=== PATIENT | male | born 1950 | race Caucasian/White ===

== ENCOUNTER 2017-08-13 09:06 | Emergency (ER) | payer BC, OTHER ==
[2017-08-13] MEDS: DEXTROSE 50% 25 GM / 50ML DISP.SYRIN. IV (09:13)
[2017-08-13 09:31] LABS: ADD MAN DIFF? NO
[2017-08-13 09:34] LABS: POC GLUCOSE 24 mg/dL (70-99)
[2017-08-13 09:41] LABS: BASO # 0.1 x10^3/uL (0.0-0.2); BASO % 1 % (0-3); EOS # 0.4 x10^3/uL (0.0-0.7); EOS % 7 % (0-3); HEMATOCRIT 32.9 % (39.0-53.0); HEMOGLOBIN 11.6 g/dL (13.0-17.5); LYMPH # 1.1 x10^3/uL (1.0-4.8); LYMPH % 17 % (24-48); MEAN CORPUSCULAR HEMOGLOBIN 29 pg (25-35); MEAN CORPUSCULAR HGB CONC 35 g/dL (31-37); MEAN CORPUSCULAR VOLUME 82 fL (79-100); MONO # 0.6 x10^3/uL (0.0-1.1); MONO % 10 % (0-9); NEUT # 4.4 x10^3uL (1.8-7.7); NEUT % 66 % (31-73); PLATELET COUNT 299 x10^3/uL (140-400); RED BLOOD COUNT 4.02 x10^6/uL (4.30-5.70); RED CELL DISTRIBUTION WIDTH 13.6 % (11.5-14.5); WHITE BLOOD COUNT 6.6 x10^3/uL (4.0-11.0)
[2017-08-13 09:55] LABS: ETHANOL < 10 mg/dL (0-10)
[2017-08-13 09:55] LABS: ANION GAP 9 (6-14); BLOOD UREA NITROGEN 16 mg/dL (8-26); BUN/CREATININE RATIO 18 (6-20); CALCIUM 8.9 mg/dL (8.5-10.1); CARBON DIOXIDE 25 mmol/L (21-32); CHLORIDE 96 mmol/L (98-107); CREATININE 0.9 mg/dL (0.7-1.3); GFR 84.7; GLUCOSE 193 mg/dL (70-99); POTASSIUM 4.1 mmol/L (3.5-5.1); SODIUM 130 mmol/L (136-145)
[2017-08-13 10:08] LABS: ALBUMIN 3.3 g/dL (3.4-5.0); ALBUMIN/GLOBULIN RATIO 1.1 (1.0-1.7); ALK PHOS 102 U/L (46-116); ALT (SGPT) 24 U/L (16-63); AST (SGOT) 18 U/L (15-37); TOTAL BILIRUBIN 0.2 mg/dL (0.2-1.0); TOTAL PROTEIN 6.4 g/dL (6.4-8.2)
[2017-08-13 11:37] LABS: BILIRUBIN,URINE NEGATIVE (NEG); CLARITY,URINE CLEAR; COLOR,URINE YELLOW; GLUCOSE,URINE 100 mg/dL (NEG); NITRITE,URINE NEGATIVE (NEG); PROTEIN,URINE 100 mg/dL (NEG-TRACE); UROBILINOGEN,URINE 0.2 mg/dL (0.2 mg/dL)
[2017-08-13 11:48] LABS: BACTERIA,URINE FEW /HPF (0-FEW); SQUAMOUS EPITHELIAL CELL,UR OCC /LPF
[2017-08-13 15:18] LABS: POC GLUCOSE 196 mg/dL (70-99)
== END 2017-08-13 12:30 | disposition home or self-care (01) ==
LOC: ER 09:06
DX: E11.649 Type 2 diabetes mellitus with hypoglycemia without coma (principal); R06.02 Shortness of breath; R05 Cough; Z87.891 Personal history of nicotine dependence; Z88.0 Allergy status to penicillin
CPT/HCPCS: 36415; 71045; 80053; 81001; 82962; 85025; 87086; 93005; 96374; 99285-25; G0480; J7042

== ENCOUNTER 2019-11-02 14:01 | Emergency (ER) | payer BC ==
[~2019-11-02] VITALS: Ht 172.7 cm; Wt 75.0 kg
[~2019-11-02 14:01] MED LIST: LEVO500T59 PO
--- NOTE | 2019-11-02 15:39 | RAD ---
Right thumb 3 views 11/02/2019. Reason for exam: Injury. Laceration. No fracture or dislocation is seen. There is no apparent foreign body. Some arthritic changes are present at the first carpometacarpal joint. IMPRESSION: No acute abnormality. Electronically signed by: Aurelio Duenas Jr., MD (11/02/2019 3:36 PM) [id number]
[2019-11-02] MEDS ORDERED: NAPROXEN 500 MG TABLET PO STA (15:53)
[2019-11-02] MEDS ORDERED: HYDROcodone/APAP 5/325MG 1 TAB TABLET PO ONE (16:00)
[2019-11-02] MEDS ORDERED: LIDOCAINE 1% Multi-Dose 20 ML VIAL. INJ ONE (16:00)
[2019-11-02 17:00] VITALS: BP 154/74
--- NOTE | 2019-11-02 17:11 | PHYS DOC ---
Past Medical History Past Medical History: Diabetes-Type II (CLAUDIA BACON APRN) Past Surgical History: No Surgical History (CLAUDIA BACON APRN) Smoking Status: Former Smoker Alcohol Use: None Drug Use: None (CLAUDIA BACON APRN) General Adult EDM: Chief Complaint: LACERATION/AVULSION HPI: HPI: Patient is a 69 year old male who presents with right thumb laceration that occurred after he accidentally cut himself with an electric saw. Patient is right-handed. (CLAUDIA BACON APRN) Review of Systems: Review of Systems: Constitutional: Denies fever or chills. [] Musculoskeletal: Denies back pain or joint pain. [] Integument: Right thumb laceration Neurologic: Denies headache, focal weakness or sensory changes. [] Psychiatric: Denies depression or anxiety. [] (CLAUDIA BACON APRN) Heart Score: Risk Factors: Risk Factors: DM, Current or recent (<one month) smoker, HTN, HLP, family history of CAD, obesity. Risk Scores: Score 0 - 3: 2.5% MACE over next 6 weeks - Discharge Home Score 4 - 6: 20.3% MACE over next 6 weeks - Admit for Clinical Observation Score 7 - 10: 72.7% MACE over next 6 weeks - Early Invasive Strategies (CLAUDIA BACON APRN) Current Medications: Current Medications Medications (Trade) Dose Ordered Sig/[place] Start Time Stop Time Status Last Admin Dose Admin Acetaminophen/ Hydrocodone Bitart (Lortab 5/325) 2 tab 1X ONCE 11/02/19 16:00 11/02/19 16:05 DC 11/02/19 16:12 2 TAB Lidocaine HCl (Lidocaine 1% 20ml Vial) 20 ml 1X ONCE 11/02/19 16:00 11/02/19 16:05 DC 11/02/19 16:12 20 ML Naproxen (Naprosyn) 500 mg 1X STAT 11/02/19 15:53 11/02/19 16:05 DC 11/02/19 16:12 500 MG (CLAUDIA BACON APRN) Allergies: Allergies: Allergies Coded Allergies Type Severity Reaction Last Updated Verified Penicillins Allergy Mild Hives 03/01/14 Yes (CLAUDIA BACON APRN) Physical Exam: PE: Constitutional: Well developed, well nourished, no acute distress, non-toxic appearance. [] Skin: Ventral aspect of the right thumb with a laceration approximately 5 cm long, there is no obvious tendon involvement. Full range of motion to the right thumb including flexion and extension of all the joints. +2 right radial pulse. Cap refill less than 2 seconds the right thumb. Adequate radial sensation to the right thumb. Back: No tenderness, no CVA tenderness. [] Extremities: No tenderness, no cyanosis, no clubbing, ROM intact, no edema. [] Neurologic: Alert and oriented X 3, normal motor function, normal sensory function, no focal deficits noted. [] Psychologic: Affect normal, judgement normal, mood normal. [] (CLAUDIA BACON APRN) Current Patient Data: Vital Signs: Vital Signs Date Time Temp Pulse Resp B/P (MAP) Pulse Ox O2 Delivery O2 Flow Rate FiO2 11/02/19 14:36 98.6 20 164/79 (107) 96 Room Air 98.6 (CLAUDIA BACON APRN) EKG: EKG: [] (CLAUDIA BACON APRN) Radiology/Procedures: Radiology/Procedures: Laceration/Wound Repair Wound Location: Right thumb Wound's Depth, Shape: Vertical Wound Length (cm): 5 Wound Explored: clean Irrigated w/ Saline (ccs): 30 Betadine Prep?: Yes Anesthesia: 1% of lidocaine Volume Anesthetic (ccs): 6 Wound Repaired With: Vicryl Suture Size/Type: 5.0/interrupted sutures Number of Sutures: 10 Progress : Wound was covered with nonstick dressing (CLAUDIA BACON APRN) Course & Med Decision Making: Course & Med Decision Making Pertinent Labs and Imaging studies reviewed. (See chart for details) This is a 69-year-old male patient with right thumb laceration that was closed by me as noted in procedures. Wound care instructions and return precautions provided to patient. Tetanus up-to-date. (CLAUDIA BACON APRN) Dragon Disclaimer: Draguli Disclaimer: This electronic medical record was generated, in whole or in part, using a voice recognition dictation system. (CLAUDIA BACON APRN) Departure Departure Impression: Primary Impression: Laceration of finger, right Qualified Codes: S61.011A - Laceration without foreign body of right thumb without damage to nail, initial encounter Disposition: HOME, SELF-CARE Condition: STABLE Referrals: JALEN MANN MD (PCP) follow up as needed Patient Instructions: Fingertip Laceration Additional Instructions: Your right finger was closed with dissolvable stitches. Keep the area clean and dry. You can shower and wash the area but do not soak the laceration site. Please apply Neosporin to the laceration site twice a day. Monitor the area for any signs of infection including but not limited to increased redness, warmth, yellow drainage from the area and return to the ED or see your own doctor if they occur Justicifation of Admission Dx: Justifications for Admission: Justification of Admission Dx: N/A (CLAUDIA BACON APRN) Attending Signature Attending Signature I have reviewed the PA/GEOLOGICAL ENGINEERING TEACHER's note and plan of care. I was available for consultation as needed during the patient's visit in the emergency department. I agree with the clinical impression, plan, and disposition. (MINDI ESTARDA DO) CLAUDIA BACON APRN Nov 02, 2019 17:11 MINDI ESTRADA DO Nov 03, 2019 06:21
== END 2019-11-02 17:20 | disposition home or self-care (01) ==
LOC: ER 14:01
DX: S61.011A Laceration without foreign body of right thumb without damage to nail, initial encounter (principal); R20.2 Paresthesia of skin; E11.9 Type 2 diabetes mellitus without complications; Z87.891 Personal history of nicotine dependence; Z88.0 Allergy status to penicillin; W26.8XXA Contact with other sharp object(s), not elsewhere classified, initial encounter; W45.8XXA Other foreign body or object entering through skin, initial encounter; Y93.89 Activity, other specified; Y92.89 Other specified places as the place of occurrence of the external cause; Y99.8 Other external cause status
CPT/HCPCS: 12002; 73140; 99283; J3490